=== PATIENT | female | born 1950 | race Caucasian/White ===

== ENCOUNTER 2016-05-09 21:35 | Emergency (ER) | payer BC, OTHER ==
[~2016-05-09] VITALS: Ht 172.7 cm; Wt 73.0 kg
[~2016-05-09 21:35] MED LIST: Z.0.NO CURRENT MEDS
[2016-05-09 21:38] VITALS: BP 132/83; PULSE 77; RESP 16; TEMP 97.7; O2SAT 98
--- NOTE | 2016-05-09 21:52 | PD ---
HPI Chief Complaint: Injury Time Seen by Provider: 21:40 Travel History International Travel<30 days: No Contact w/Intl Traveler<30days: No Traveled to known affect area: No History of Present Illness HPI This is a 65-year-old female who denies any significant past medical history. She presents for evaluation of right wrist pain. She reports that 7:30 PM she tripped in her garage and fell, landing of the right wrist. She has pain in the dorsal aspect of the right wrist, some bruising, pain is worse with movement. Pain is an aching pain. She has been icing it. She reports previous fractures of his right wrist with some limitation in range of motion secondary to the old fracture. She denies any other injuries and she has no other complaints at this time. [facility] Past Medical History Cardiovascular Problems: Yes (AFIB) Past Surgical History Abdominal Surgery: Yes Hysterectomy: Yes Social History Alcohol Use: Yes Tobacco Use: No Substance Use: No Allergies-Medications (Allergen,Severity, Reaction): Coded Allergies: No Known Allergies (Unverified , 05/09/16) Reported Meds & Prescriptions Reported Meds & Active Scripts Active Lortab (Hydrocodone-Acetaminophen) 5-325 Mg Tab 1 Tab PO Q6H PRN Review of Systems Except as stated in HPI: all other systems reviewed are Neg Physical Exam Narrative GENERAL: Well-developed well-nourished female in no acute distress SKIN: Warm and dry. There is Some bruising developing the dorsal aspect of the right wrist. CARDIOVASCULAR: Regular rate and rhythm. No murmur appreciated. RESPIRATORY: No accessory muscle use. Clear to auscultation. Breath sounds equal bilaterally. MUSCULOSKELETAL: Skin as noted above. Mild tenderness to palpation to the dorsal right wrist. There is slight limitation and supination of the right wrist which she reports is chronic. She is able to flex and extend the right wrist. Full range of motion of the fingers. There is no tenderness to palpation to the right proximal forearm or elbow. 2+ radial pulse. Capillary refill less than 2 seconds all digits right hand. NEUROLOGICAL: Awake and alert. No obvious cranial nerve deficits. Motor grossly within normal limits. Normal speech. Data Data Last Documented VS Vital Signs Date Time Temp Pulse Resp B/P Pulse Ox O2 Delivery O2 Flow Rate FiO2 05/09/16 21:38 97.7 77 16 132/83 98 Room Air Orders Wrist, Complete ([id number]) (05/09/16 ) Splint Or Brace Apply/Monitor (05/09/16 22:39) Support Splint (05/09/16 22:39) MDM Medical Decision Making Medical Screen Exam Complete: Yes Emergency Medical Condition: Yes Medical Record Reviewed: Yes Interpretation(s) Right wrist x-ray reveals a T-shaped fracture of the distal radius in anatomical alignment without displacement. Differential Diagnosis Right wrist fracture, contusion, sprain, dislocation Narrative Course 65-year-old female presents with right wrist pain after mechanical fall. An ice pack has been provided. X-ray imaging will be obtained. X-ray imaging reveals a nondisplaced distal radial fracture. The patient is being discharged with a sugar tong arm splint, outpatient orthopedic follow-up and a prescription for Lortab for pain. Diagnosis Primary Impression: Right wrist fracture Qualified Code: S62.101A - Right wrist fracture, closed, initial encounter Referrals: Bautista Tracy Jr., MD Additional Instructions: Follow-up with an orthopedist such as Dr. Tracy in the next week, call to make an appointment. Do not remove the splint. Pain medication as needed. Return for any emergent medical conditions. Med/Other Pt SpecificInfo: Prescription(s) given, Orthopedic Instructions Scripts Hydrocodone-Acetaminophen (Lortab)5-325 Mg Tab1 Tab PO Q6H PRN (PAIN) #20 TAB Ref 0 Prov:Eri Randolph MD 05/09/16 Disposition: 01 DISCHARGE HOME Condition: Stable Tawanda Montano May 09, 2016 21:52
--- NOTE | 2016-05-09 22:36 | RADRPT ---
EXAM DATE/TIME: 05/09/2016 22:04 [facility] COMPARISON: No previous studies available for comparison. INDICATIONS : Right wrist pain, fell MEDICAL HISTORY : Previous right wrist fracture SURGICAL HISTORY : None. ENCOUNTER: Initial ACUITY: 1 day PAIN SCORE: 6/10 LOCATION: Right wrist FINDINGS: The bones are osteopenic. There is a T-shaped fracture of the distal radius in anatomic alignment wi thout displacement. Ulna is intact. Carpus is intact. CONCLUSION: T-shaped fracture distal radius involving the radial carpal joint. Devang Ford MD FACR on May 09, 2016 at 22:30 Board Certified Radiologist. This report was verified electronically.
[2016-05-09] MEDS ORDERED: HYDR-3533 PO (22:42)
== END 2016-05-09 23:22 | disposition home or self-care (01) ==
LOC: NEPB 21:35
DX: S52.501A Unspecified fracture of the lower end of right radius, initial encounter for closed fracture (principal); I48.91 Unspecified atrial fibrillation; W01.0XXA Fall on same level from slipping, tripping and stumbling without subsequent striking against object, initial encounter; Y92.008 Other place in unspecified non-institutional (private) residence as the place of occurrence of the external cause
CPT/HCPCS: 29125; 73110

== ENCOUNTER 2016-08-30 12:14 | Emergency (ER) | payer BC ==
[~2016-08-30] VITALS: Ht 172.7 cm; Wt 76.0 kg
[~2016-08-30 12:14] MED LIST changes: +HYDR-3533 PO; -Z.0.NO CURRENT MEDS
[2016-08-30 12:16] VITALS: BP 142/84; PULSE 84; RESP 17; TEMP 97.8; O2SAT 99
[2016-08-30] MEDS ORDERED: SODIUM CHLORIDE 0.9% FLUSH 10 ML FLUSH IV FLUSH PRN (12:45)
--- NOTE | 2016-08-30 12:56 | PD ---
HPI Chief Complaint: Abdominal Pain Time Seen by Provider: 12:45 Travel History International Travel<30 days: Yes Contact w/Intl Traveler<30days: Yes Name of Country Traveled to: [place] Traveled to known affect area: No History of Present Illness HPI The patient was seen and examined in the presence of the nurse. She complains of abdominal pain. Location is left lower quadrant. Duration is 12 days. She went to an urgent care center and got a prescription for Cipro which she has completed but is had progression of symptoms and now feels worse. She denies fever or vomiting but has had diarrhea. No alleviating factors. Severity is moderate PFSH Past Medical History Cardiovascular Problems: Yes (A-FIB ) Past Surgical History Abdominal Surgery: Yes Hysterectomy: Yes Social History Alcohol Use: Yes Tobacco Use: No Substance Use: No Allergies-Medications (Allergen,Severity, Reaction): Coded Allergies: No Known Allergies (Unverified , 05/09/16) Reported Meds & Prescriptions Reported Meds & Active Scripts Active Lortab (Hydrocodone-Acetaminophen) 5-325 Mg Tab 1 Tab PO Q6H PRN Review of Systems General / Constitutional: No: Fever Eyes: No: Visual changes HENT: No: Headaches Cardiovascular: No: Chest Pain or Discomfort Respiratory: No: Shortness of Breath Gastrointestinal: Positive: Diarrhea, Abdominal Pain Genitourinary: No: Dysuria Musculoskeletal: No: Pain Skin: No Rash Neurologic: No: Weakness Psychiatric: No: Depression Endocrine: No: Polydipsia Hematologic/Lymphatic: No: Easy Bruising Physical Exam Narrative GENERAL: Well-nourished, well-developed patient with abdominal pain . SKIN: Focused skin assessment reveals no rash and nodules. Skin is Warm and dry. HEAD: Atraumatic. Normocephalic. EYES: Pupils equal and round. No scleral icterus. No injection or drainage. ENT: No nasal bleeding or discharge. Mucous membranes pink and moist. NECK: Trachea midline. No JVD. CARDIOVASCULAR: Regular rate and rhythm. No murmur appreciated. RESPIRATORY: No accessory muscle use. Clear to auscultation. Breath sounds equal bilaterally. GASTROINTESTINAL: Abdomen soft, mild left lower quadrant tenderness without rebound or guarding, nondistended. Hepatic and splenic margins not palpable. MUSCULOSKELETAL: No obvious deformities. No clubbing. No cyanosis. No edema. NEUROLOGICAL: Awake and alert. No obvious cranial nerve deficits. Motor grossly within normal limits. Normal speech. PSYCHIATRIC: Appropriate mood and affect; insight and judgment normal. Data Data Last Documented VS Vital Signs Date Time Temp Pulse Resp B/P Pulse Ox O2 Delivery O2 Flow Rate FiO2 08/30/16 12:36 18 08/30/16 12:16 97.8 84 142/84 99 Orders Basic Metabolic Panel (Bmp) (08/30/16 12:45) Complete Blood Count With Diff (08/30/16 12:45) Prothrombin Time / Inr (Pt) (08/30/16 12:45) Act Partial Throm Time (Ptt) (08/30/16 12:45) Urinalysis - C+S If Indicated (08/30/16 12:45) Ct Abd/Pel W Iv Contrast(Rout) (08/30/16 12:45) Iv Access Insert/Monitor (08/30/16 12:45) NPO (08/30/16 12:45) Sodium Chloride 0.9% Flush (Ns Flush) (08/30/16 12:45) Iohexol 350 Inj (Omnipaque 350 Inj) (08/30/16 14:16) Labs Laboratory Tests Test 08/30/16 12:57 White Blood Count 9.7 TH/MM3 Red Blood Count 5.06 MIL/MM3 Hemoglobin 16.4 GM/DL Hematocrit 47.7 % Mean Corpuscular Volume 94.4 FL Mean Corpuscular Hemoglobin 32.5 PG Mean Corpuscular Hemoglobin 34.4 % Concent Red Cell Distribution Width 13.1 % Platelet Count 252 TH/MM3 Mean Platelet Volume 8.8 FL Neutrophils (%) (Auto) 67.5 % Lymphocytes (%) (Auto) 22.5 % Monocytes (%) (Auto) 9.1 % Eosinophils (%) (Auto) 0.7 % Basophils (%) (Auto) 0.2 % Neutrophils # (Auto) 6.5 TH/MM3 Lymphocytes # (Auto) 2.2 TH/MM3 Monocytes # (Auto) 0.9 TH/MM3 Eosinophils # (Auto) 0.1 TH/MM3 Basophils # (Auto) 0.0 TH/MM3 CBC Comment DIFF FINAL Differential Comment Prothrombin Time 10.9 SEC Prothromb Time International 1.0 RATIO Ratio Activated Partial 26.4 SEC Thromboplast Time Urine Color YELLOW Urine Turbidity CLEAR Urine pH 6.0 Urine Specific [place] 1.011 Urine Protein TRACE mg/dL Urine Glucose (UA) NEG mg/dL Urine Ketones NEG mg/dL Urine Occult Blood NEG Urine Nitrite NEG Urine Bilirubin NEG Urine Urobilinogen LESS THAN 2.0 MG/DL Urine Leukocyte Esterase LARGE Urine RBC 1 /hpf Urine WBC 8 /hpf Urine Squamous Epithelial 1 /hpf Cells Urine Bacteria RARE /hpf Urine Hyaline Casts 2 /lpf Urine Mucus FEW /lpf Microscopic Urinalysis Comment CULT NOT INDICATED Sodium Level 138 MEQ/L Potassium Level 3.6 MEQ/L Chloride Level 103 MEQ/L Carbon Dioxide Level 23.5 MEQ/L Anion Gap 12 MEQ/L Blood Urea Nitrogen 7 MG/DL Creatinine 1.06 MG/DL Estimat Glomerular Filtration 52 ML/MIN Rate Random Glucose 116 MG/DL Calcium Level 8.6 MG/DL [facility] Medical Decision Making Medical Screen Exam Complete: Yes Emergency Medical Condition: Yes Medical Record Reviewed: Yes Differential Diagnosis Diverticulitis, colitis, AAA Narrative Course I have reviewed the patient's electronic medical record. IV placed CBC is normal Metabolic profile is normal Coagulation studies are normal Urinalysis is clean CT of abdomen and pelvis shows what looks to be consistent with a small splenic infarct. There is also a nonspecific lesion in her left kidney. No other abnormalities noted. I reviewed the CT scan results in detail with radiologist Dr. Sae Liz. He got a good look at her abdominal vasculature with IV contrast and does not feel a CT of abdomen and pelvis would reveal any significant lesion. We gave when I have her take a daily aspirin until she can see her doctor. Diagnosis Primary Impression: Splenic infarct Additional Impression: Abdominal pain Qualified Code: R10.32 - Left lower quadrant pain Additional Instructions: The patient was advised to follow up with their physician and return if they worsen. Take a daily aspirin Med/Other Pt SpecificInfo: Other Disposition: 01 DISCHARGE HOME Condition: Stable Easton Sheehan MD August 30, 2016 12:55
[2016-08-30 13:08] LABS: AUTOMATED NEUTROPHIL # 6.5 TH/MM3 (1.8-7.7); BASOPHIL % 0.2 % (0.0-2.0); EOSINOPHIL # 0.1 TH/MM3 (0-0.4); EOSINOPHIL % 0.7 % (0.0-4.0); HEMATOCRIT 47.7 % (35.0-46.0); HEMO FLAGS DIFF FINAL; LYMPH % 22.5 % (9.0-44.0); LYMPHOCYTE # 2.2 TH/MM3 (1.0-4.8); MEAN CELL VOLUME 94.4 FL (80.0-100.0); MEAN CORPUSCULAR HEMOGLOBIN 32.5 PG (27.0-34.0); MEAN CORPUSCULAR HGB CONC 34.4 % (32.0-36.0); MONO % 9.1 % (0.0-8.0); NEUT % 67.5 % (16.0-70.0); PLATELET COUNT 252 TH/MM3 (150-450); RED BLOOD COUNT 5.06 MIL/MM3 (4.00-5.30); RED CELL DISTRIBUTION WIDTH 13.1 % (11.6-17.2); WHITE BLOOD COUNT 9.7 TH/MM3 (4.0-11.0)
[2016-08-30 13:13] LABS: BACTERIA, URINE RARE /hpf; BLOOD, URINE NEG (NEG); COMMENT (UR) CULT NOT INDICATED; CULTURE IF INDICATED CULT NOT INDICATED; GLUCOSE,URINE NEG (NEG); HYALINE CAST, URINE 2 /lpf (RARE); KETONE, URINE NEG (NEG); MUCUS URINE FEW /lpf (OCC); NITRITE,URINE NEG (NEG); SQUAMOUS EPITHELIAL CELL URINE 1 /hpf (0-5); URINE COLOR YELLOW (YELLW/STRAW)
[2016-08-30 13:15] LABS: APTT (PATIENT) 26.4 SEC (24.3-30.1); PROTHROMBIN TIME - PATIENT 10.9 SEC (9.8-11.6)
[2016-08-30 13:29] LABS: BICARBONATE 23.5 MEQ/L (21.0-32.0); POTASSIUM 3.6 MEQ/L (3.5-5.1)
[2016-08-30] MEDS ORDERED: IOHEXOL 350 MG/ML 10 ML VIAL (for RAD DIAG) IV ONE (14:16)
--- NOTE | 2016-08-30 14:33 | RADRPT ---
EXAM DATE/TIME: 08/30/2016 14:13 [facility] COMPARISON: No previous studies available for comparison. INDICATIONS : Abdominal pain in lower left region for 12 days. IV CONTRAST: 76 cc Omnipaque 350 (iohexol) IV ORAL CONTRAST: No oral contrast ingested. RADIATION DOSE: 9.96 CTDIvol (mGy) MEDICAL HISTORY : Cardiovascular disease. SURGICAL HISTORY : Hysterectomy. ENCOUNTER: Initial ACUITY: 2 weeks PAIN SCALE: 6/10 LOCATION: Left lower quadrant TECHNIQUE: Volumetric scanning of the abdomen and pelvis was performed. Using automated exposure control and ad justment of the mA and/or kV according to patient size, radiation dose was kept as low as reasonably achievable to obtain optimal diagnostic quality images. FINDINGS: LOWER LUNGS: The visualized lower lungs are clear. LIVER: Homogeneous density without lesion. There is no dilation of the biliary tree. No calcified gallston es. SPLEEN: There is a peripheral hypodensity in the apex of the spleen which has appearance of infarct. Remainde r the spleen is unremarkable. PANCREAS: Within normal limits. KIDNEYS: There is a small cortical defect in the posterior midpole region of the left kidney which has the juan earance of a nonacute insult of some type, potentially either vascular, traumatic or post infectious. Right kidney is normal. There is no evidence of hydronephrosis or stone. ADRENAL GLANDS: Within normal limits. VASCULAR: There is no aortic aneurysm. BOWEL/MESENTERY: The stomach, small bowel, and colon demonstrate no acute abnormality. There is no free intraperitone al air or fluid. ABDOMINAL WALL: Within normal limits. RETROPERITONEUM: There is no lymphadenopathy. BLADDER: No wall thickening or mass. REPRODUCTIVE: Uterus is surgically absent. No evidence of pelvic mass or free fluid. INGUINAL: There is no lymphadenopathy or hernia. MUSCULOSKELETAL: Within normal limits for patient age. CONCLUSION: Splenic infarct. Sae Liz MD on August 30, 2016 at 14:25 Board Certified Radiologist. This report was verified electronically.
[2016-08-30] MEDS ORDERED: TRAM50TA PO (14:57)
[2016-08-30] MEDS ORDERED: ZOFR4TAB3 SL (15:14)
[2016-08-30 15:29] VITALS: BP 128/87; TEMP 98.3
== END 2016-08-30 15:31 | disposition home or self-care (01) ==
LOC: NEPD 12:14
DX: D73.5 Infarction of spleen (principal); R10.32 Left lower quadrant pain; I48.91 Unspecified atrial fibrillation
CPT/HCPCS: 74177; 80048; 81001; 85025; 85610; 85730; 99284; Q9967